=== PATIENT | female | born 1955 | race Caucasian/White ===

== ENCOUNTER 2020-01-24 22:22 | Observation (INO) ==
[2020-01-25 01:08] LABS: Adenovirus Not Detected (Not Detect); Bordetella Pertussis Not Detected (Not Detect); Chlamydophila pneumoniae Not Detected (Not Detect); Coronavirus 229E Not Detected (Not Detect); Coronavirus HKU1 Not Detected (Not Detect); Coronavirus NL63 Not Detected (Not Detect); Coronavirus OC43 Not Detected (Not Detect); Human Metapneumovirus Not Detected (Not Detect); Human Rhinovirus/Enterovirus Not Detected (Not Detect); Influenza A Subtype 2009 H1 Not Detected (Not Detect); Influenza B Not Detected (Not Detect); Mycoplasma pneumoniae Not Detected (Not Detect); Parainfluenza Virus 1 Not Detected (Not Detect); Parainfluenza Virus 2 Not Detected (Not Detect); Parainfluenza Virus 3 Not Detected (Not Detect); Parainfluenza Virus 4 Not Detected (Not Detect); Respiratory Syncytial Virus Not Detected (Not Detect); SARS-CoV-2 Not Detected (Not Detect)
[2020-01-25] MEDS ORDERED: Naloxone 0.4 MG/ML INJ IVP PRN (01:52)
[2020-01-25] MEDS: Ketorolac 15 MG/ML VIAL IVP PRN ×2 (06:05→12:34)
[2020-01-25 07:06] LABS: Basophils % 0.3 %; Hematocrit 42.6 % (35.3-44.9); Hemoglobin 13.9 g/dL (11.5-15.4); Immature Granulocytes % 0.2 % (0-4); Lymphocytes % 15.8 %; Mean Corpuscular HGB Conc 32.6 g/dL (31.6-35.5); Mean Corpuscular Hemoglobin 30.1 pg (28.0-33.3); Mean Corpuscular Volume 92.2 fL (83.0-100.0); Mean Platelet Volume 11.9 fL (9.4-12.4); Monocytes # 0.1 K/mcL (0.0-1.3); Monocytes % 1.5 %; Neutrophils # 5.3 K/mcL (1.6-8.9); Platelet Count 248 K/mcL (140-400); Red Blood Count 4.62 M/mcL (3.82-4.97); Red Cell Distribution Width 12.8 % (11.5-14.5); Segmented Neutrophils % 82.2 %; White Blood Count 6.5 K/mcL (4.3-11.1)
[2020-01-25 07:22] LABS: Prothrombin Time 11.5 Seconds (9.4-12.1)
[2020-01-25 07:25] LABS: Alanine Aminotransferase 7 Units/L (7-52); Albumin/Globulin Ratio 1.2 (1.1-2.2); Alkaline Phosphatase 66 Units/L (34-104); Aspartate Amino Transferase 10 Units/L (13-39); BUN/Creatinine Ratio 15 (6-26); Bilirubin,Total 0.3 mg/dL (0.3-1.0); Blood Urea Nitrogen 11 mg/dL (8-23); Calcium 9.1 mg/dL (8.6-10.3); Carbon Dioxide 23 mEq/L (23-29); Chloride 106 mEq/L (98-107); Globulin 3.3 g/dL (2.4-3.5); Glucose 143 mg/dL (70-105); Magnesium 2.2 mg/dL (1.6-2.6); Osmolality,Calculated 288 (280-300); Phosphorous 3.8 mg/dL (2.7-4.5); Potassium 4.2 mEq/L (3.5-5.1); Sodium 138 mEq/L (136-145); Total Protein 7.3 g/dL (6.4-8.9); eGFR For African Americans > 60 (> 60); eGFR For Non-African Americans > 60 (> 60)
[2020-01-25] MEDS ORDERED: NON-FORMULARY MEDICATION 1 EACH EACH (Duloxetine Hcl [Cymbalta] 60 MG) PO SCH (09:30)
[2020-01-25] MEDS: Nicotine 21 MG PATCH.TD24 TD SCH (09:57)
[2020-01-25] MEDS: cefTRIAXone 1,000 MG in Water for inj. (sterile) 10 ML IVP SCH (09:58)
[2020-01-25] MEDS: Azithromycin 500 MG in D5% in Water 250 ML IVPB SCH (09:58)
[2020-01-25] MEDS: lisinopriL 20 MG TABLET PO SCH (11:14)
[2020-01-25] MEDS: Aspirin Enteric Coated 81 MG Tablet PO SCH (11:14)
[2020-01-25] MEDS: clonazePAM 0.5 MG TABLET PO SCH ×3 (11:17→20:11)
[2020-01-25] MEDS: Gabapentin 400 MG CAPSULE PO SCH ×3 (11:17→20:10)
[2020-01-25] MEDS ORDERED: *HR* LORazepam 0.5 MG TABLET PO PRN (13:10)
[2020-01-25] MEDS: Fluticasone Propionate Nasal 50 MCG/SPRAY BOTTLE NS SCH (13:31)
[2020-01-25] MEDS: predniSONE 20 MG TABLET PO SCH (15:09)
[2020-01-25] MEDS: traZODone 50 MG TABLET PO SCH (20:10)
[2020-01-25] MEDS: Budesonide/Formoterol 160/4.5 1 PUFF INH IH SCH (20:24)
[2020-01-25] MEDS ORDERED: NON-FORMULARY MEDICATION 1 EACH EACH (Trazodone Hcl 150 MG) PO SCH (21:00)
[2020-01-26] MEDS: Budesonide/Formoterol 160/4.5 1 PUFF INH IH SCH ×2 (07:38→19:59)
[2020-01-26] MEDS ORDERED: Ondansetron 4 MG/2 ML VIAL ONE (10:07)
[2020-01-26] MEDS ORDERED: Dexamethasone 4 MG/ML VIAL ONE (10:07)
[2020-01-26] MEDS ORDERED: Lidocaine -MPF 2% 2 ML VIAL ONE ×2 (10:07→11:28)
[2020-01-26] MEDS ORDERED: Lidocaine -MPF 4% 5 ML AMPUL ONE (11:24)
[2020-01-26] MEDS ORDERED: *HR* FentaNYL (PF) 100 MCG/2 ML VIAL ONE (11:25)
[2020-01-26] MEDS ORDERED: *HR* PHENYLEPHRINE 1,000 MCG/10 ML SYRINGE IVP ONE (11:49)
[2020-01-26] MEDS: Azithromycin 500 MG in D5% in Water 250 ML IVPB SCH (13:09)
[2020-01-26] MEDS: predniSONE 20 MG TABLET PO SCH (13:10)
[2020-01-26] MEDS: lisinopriL 20 MG TABLET PO SCH (13:10)
[2020-01-26] MEDS: cefTRIAXone 1,000 MG in Water for inj. (sterile) 10 ML IVP SCH (13:10)
[2020-01-26] MEDS: clonazePAM 0.5 MG TABLET PO SCH ×3 (13:11→20:36)
[2020-01-26] MEDS: Gabapentin 400 MG CAPSULE PO SCH ×3 (13:11→20:35)
[2020-01-26] MEDS: Nicotine 21 MG PATCH.TD24 TD SCH (13:11)
[2020-01-26] MEDS: Fluticasone Propionate Nasal 50 MCG/SPRAY BOTTLE NS SCH (13:12)
[2020-01-26] MEDS: Aspirin Enteric Coated 81 MG Tablet PO SCH (19:34)
[2020-01-26] MEDS: traZODone 50 MG TABLET PO SCH (20:35)
[2020-01-26] MEDS: Ketorolac 15 MG/ML VIAL IVP PRN (20:36)
[2020-01-26 21:20] LABS: Source of Body Fluid LUL BAL
[2020-01-26 22:52] LABS: Appearance of Body Fluid Cloudy (Clear); Volume of Body Fluid 15 mL
[2020-01-27 06:57] VITALS: BP 128/62
[2020-01-27] MEDS: Azithromycin 500 MG in D5% in Water 250 ML IVPB SCH (07:36)
[2020-01-27] MEDS: cefTRIAXone 1,000 MG in Water for inj. (sterile) 10 ML IVP SCH (07:36)
[2020-01-27] MEDS: clonazePAM 0.5 MG TABLET PO SCH (07:37)
[2020-01-27] MEDS: lisinopriL 20 MG TABLET PO SCH (07:37)
[2020-01-27] MEDS: Gabapentin 400 MG CAPSULE PO SCH (07:37)
[2020-01-27] MEDS: predniSONE 20 MG TABLET PO SCH (07:38)
[2020-01-27] MEDS: Nicotine 21 MG PATCH.TD24 TD SCH (07:38)
[2020-01-27] MEDS: Fluticasone Propionate Nasal 50 MCG/SPRAY BOTTLE NS SCH (07:39)
[2020-01-27] MEDS: Budesonide/Formoterol 160/4.5 1 PUFF INH IH SCH (07:54)
== END 2020-01-27 11:58 | disposition home or self-care (01) ==
LOC: 3BNU → SUATTDRO 23:44
PROVIDERS: ADMIT Internal Medicine; ATTEND Internal Medicine

== ENCOUNTER 2020-05-04 18:22 | Inpatient (IN) ==
[2020-05-04] MEDS ORDERED: Ondansetron 4 MG/2 ML VIAL IVP ONE (18:52)
[2020-05-04] MEDS ORDERED: 0.9 % Sodium Chloride 1,000 ML IVC ONE (18:52)
[2020-05-04 19:22] LABS: Hematocrit 31.4 % (35.3-44.9); Hemoglobin 10.3 g/dL (11.5-15.4); Mean Corpuscular HGB Conc 32.8 g/dL (31.6-35.5); Mean Corpuscular Hemoglobin 27.7 pg (28.0-33.3); Mean Corpuscular Volume 84.4 fL (83.0-100.0); Mean Platelet Volume 10.3 fL (9.4-12.4); Platelet Count 298 K/mcL (140-400); Red Blood Count 3.72 M/mcL (3.82-4.97); Red Cell Distribution Width 13.4 % (11.5-14.5); White Blood Count 16.9 K/mcL (4.3-11.1)
[2020-05-04 19:26] LABS: INR 1.2; Prothrombin Time 13.8 Seconds (9.4-12.1)
[2020-05-04 19:43] LABS: Alanine Aminotransferase 26 Units/L (7-52); Albumin 3.3 g/dL (3.5-5.7); Albumin/Globulin Ratio 0.9 (1.1-2.2); Alkaline Phosphatase 92 Units/L (34-104); Aspartate Amino Transferase 34 Units/L (13-39); BUN/Creatinine Ratio 25 (6-26); Bilirubin,Total 0.5 mg/dL (0.3-1.0); Blood Urea Nitrogen 14 mg/dL (8-23); Calcium 8.8 mg/dL (8.6-10.3); Carbon Dioxide 24 mEq/L (23-29); Chloride 91 mEq/L (98-107); Globulin 3.6 g/dL (2.4-3.5); Glucose 111 mg/dL (70-105); Lipase 17 Units/L (11-82); Osmolality,Calculated 271 (280-300); Sodium 130 mEq/L (136-145); Total Protein 6.9 g/dL (6.4-8.9); Troponin I < 0.03 ng/mL (< 0.04); eGFR For African Americans > 60 (> 60); eGFR For Non-African Americans > 60 (> 60)
[2020-05-04] MEDS ORDERED: 0.9 % Sodium Chloride 1,000 ML IV ONE ×2 (19:51→20:22)
[2020-05-04 19:52] LABS: Lymphocytes # 0.7 K/mcL (0.6-4.6); Neutrophils # 15.9 K/mcL (1.6-8.9)
[2020-05-04] MEDS ORDERED: Piperacillin/Tazobactam 3.375 GM in 0.9 % Sodium Chloride Mini Bag 100 ML IVPB ONE (19:52)
[2020-05-04 19:53] LABS: Platelet Estimate Normal (Normal)
[2020-05-04] MEDS ORDERED: Piperacillin/Tazobactam 3.375 GM VIAL ONE (19:59)
[2020-05-04] MEDS ORDERED: Vancomycin 1,250 MG/262.5 ML IV.SOLN IVPB ONE (20:00)
[2020-05-04] MEDS ORDERED: Naloxone 0.4 MG/ML INJ IVP PRN (20:56)
[2020-05-04] MEDS ORDERED: *HR* HYDROcodone/Acet 5/325 mg TABLET PO PRN ×2 (20:56→21:47)
[2020-05-04] MEDS ORDERED: Acetaminophen 325 MG TABLET PO PRN (20:56)
[2020-05-04] MEDS ORDERED: Ondansetron 4 MG/2 ML VIAL IVP PRN (20:56)
[2020-05-04] MEDS ORDERED: Vancomycin (wt based) 1,000 MG VIAL IVPB SCH (21:00)
[2020-05-04] MEDS: Budesonide/Formoterol 160/4.5 1 PUFF INH IH SCH (23:03)
[2020-05-04 23:38] LABS: Bacteria,Urine Few per hpf (None-Few); Bilirubin,Urine Negative (Negative); Blood,Urine Large (Negative); Clarity,Urine Clear (Clear); Color,Urine Light-Yellow (Yellow); Glucose,Urine (UA) Normal (Normal); Ketones,Urine 40 mg/dL (Negative); Leukocyte Esterase,Urine Negative (Negative); Mucus,Urine Few per lpf (None-Few); Nitrite,Urine Negative (Negative); Protein,Urine Trace mg/dL (Neg-Trace); RBC,Urine 30-50 per hpf (0-3); Specific Gravity,Urine 1.024 (1.010-1.025); Squamous Epithelial Cell,Urine Few per hpf (None-Few); Urobilinogen,Urine Normal (Normal)
[2020-05-05] MEDS: 0.9 % Sodium Chloride 1,000 ML IVC SCH ×3 (00:27→22:37)
[2020-05-05] MEDS: Piperacillin/Tazobactam 3.375 GM in 0.9 % Sodium Chloride Mini Bag 100 ML IVPB SCH ×3 (04:51→20:29)
[2020-05-05 08:31] LABS: Basophils # 0.1 K/mcL (0.0-0.2); Basophils % 0.5 %; Eosinophils # 0.1 K/mcL (0.0-0.6); Eosinophils % 0.5 %; Hematocrit 29.7 % (35.3-44.9); Hemoglobin 9.6 g/dL (11.5-15.4); Immature Granulocytes % 0.8 % (0-4); Lymphocytes # 0.4 K/mcL (0.6-4.6); Lymphocytes % 3.8 %; Mean Corpuscular HGB Conc 32.3 g/dL (31.6-35.5); Mean Corpuscular Volume 86.6 fL (83.0-100.0); Mean Platelet Volume 10.3 fL (9.4-12.4); Monocytes # 0.2 K/mcL (0.0-1.3); Monocytes % 1.7 %; Platelet Count 239 K/mcL (140-400); Red Blood Count 3.43 M/mcL (3.82-4.97); Red Cell Distribution Width 13.4 % (11.5-14.5); Segmented Neutrophils % 92.7 %; White Blood Count 11.7 K/mcL (4.3-11.1)
[2020-05-05 08:39] LABS: Neutrophils # 10.9 K/mcL (1.6-8.9)
[2020-05-05 08:50] LABS: Alanine Aminotransferase 19 Units/L (7-52); Albumin 2.8 g/dL (3.5-5.7); Albumin/Globulin Ratio 0.9 (1.1-2.2); Alkaline Phosphatase 84 Units/L (34-104); Aspartate Amino Transferase 23 Units/L (13-39); BUN/Creatinine Ratio 16 (6-26); Bilirubin,Direct 0.1 mg/dL (0.0-0.2); Bilirubin,Indirect 0.4 mg/dL (0.0-1.0); Bilirubin,Total 0.5 mg/dL (0.3-1.0); Blood Urea Nitrogen 7 mg/dL (8-23); Calcium 7.9 mg/dL (8.6-10.3); Carbon Dioxide 23 mEq/L (23-29); Chloride 101 mEq/L (98-107); Globulin 3.1 g/dL (2.4-3.5); Glucose 100 mg/dL (70-105); Magnesium 1.5 mg/dL (1.6-2.6); Osmolality,Calculated 276 (280-300); Phosphorous 2.5 mg/dL (2.7-4.5); Potassium 3.2 mEq/L (3.5-5.1); Sodium 134 mEq/L (136-145); Total Protein 5.9 g/dL (6.4-8.9); eGFR For African Americans > 60 (> 60); eGFR For Non-African Americans > 60 (> 60)
[2020-05-05] MEDS ORDERED: Vancomycin 1,250 MG/262.5 ML IV.SOLN IVPB SCH (09:00)
[2020-05-05] MEDS ORDERED: lisinopriL 20 MG TABLET PO SCH (09:00)
[2020-05-05] MEDS: Aspirin Enteric Coated 81 MG Tablet PO SCH (10:12)
[2020-05-05] MEDS: Budesonide/Formoterol 160/4.5 1 PUFF INH IH SCH ×2 (11:13→21:01)
[2020-05-05 11:28] LABS: Platelet Estimate Normal (Normal)
[2020-05-05 11:29] LABS: Anisocytosis 1+ (Not Present)
[2020-05-05] MEDS ORDERED: Potassium Phosphate 44 MEQ in 0.9 % Sodium Chloride 250 ML IVPB ONE (12:00)
[2020-05-05] MEDS ORDERED: Potassium Chloride 40 MEQ, Lidocaine 1% 2 ML in 0.9 % Sodium Chloride 500 ML IVPB ONE (12:00)
[2020-05-05] MEDS: Ondansetron 4 MG/2 ML VIAL IVP SCH ×2 (13:21→17:25)
[2020-05-05] MEDS ORDERED: *HR* HYDROcodone/Acet 5/325 mg TABLET PO PRN (15:39)
[2020-05-05] MEDS ORDERED: Ipratropium/Albuterol Neb 3 ML IH PRN (15:49)
[2020-05-05] MEDS ORDERED: traZODone 50 MG TABLET PO SCH (21:00)
[2020-05-06] MEDS: Ondansetron 4 MG/2 ML VIAL IVP SCH ×3 (00:23→17:01)
[2020-05-06 01:54] LABS: Basophils # 0.1 K/mcL (0.0-0.2); Basophils % 0.8 %; Eosinophils # 0.1 K/mcL (0.0-0.6); Eosinophils % 1.3 %; Hematocrit 27.8 % (35.3-44.9); Hemoglobin 9.2 g/dL (11.5-15.4); Immature Granulocytes % 1.4 % (0-4); Lymphocytes # 0.5 K/mcL (0.6-4.6); Lymphocytes % 6.7 %; Mean Corpuscular HGB Conc 33.1 g/dL (31.6-35.5); Mean Corpuscular Hemoglobin 28.6 pg (28.0-33.3); Mean Corpuscular Volume 86.3 fL (83.0-100.0); Mean Platelet Volume 10.6 fL (9.4-12.4); Monocytes # 0.3 K/mcL (0.0-1.3); Monocytes % 3.3 %; Neutrophils # 6.8 K/mcL (1.6-8.9); Platelet Count 190 K/mcL (140-400); Red Blood Count 3.22 M/mcL (3.82-4.97); Red Cell Distribution Width 13.2 % (11.5-14.5); Segmented Neutrophils % 86.5 %; White Blood Count 7.9 K/mcL (4.3-11.1)
[2020-05-06 02:10] LABS: Magnesium 1.7 mg/dL (1.6-2.6); Phosphorous 2.6 mg/dL (2.7-4.5)
[2020-05-06 02:13] LABS: Alanine Aminotransferase 16 Units/L (7-52); Albumin 2.7 g/dL (3.5-5.7); Albumin/Globulin Ratio 0.9 (1.1-2.2); Alkaline Phosphatase 76 Units/L (34-104); Aspartate Amino Transferase 19 Units/L (13-39); BUN/Creatinine Ratio 11 (6-26); Bilirubin,Total 0.5 mg/dL (0.3-1.0); Blood Urea Nitrogen 4 mg/dL (8-23); Calcium 7.9 mg/dL (8.6-10.3); Carbon Dioxide 20 mEq/L (23-29); Chloride 103 mEq/L (98-107); Globulin 2.9 g/dL (2.4-3.5); Glucose 98 mg/dL (70-105); Osmolality,Calculated 277 (280-300); Potassium 3.2 mEq/L (3.5-5.1); Sodium 135 mEq/L (136-145); Total Protein 5.6 g/dL (6.4-8.9); eGFR For African Americans > 60 (> 60); eGFR For Non-African Americans > 60 (> 60)
[2020-05-06 02:15] LABS: Toxic Granulation Present (Not Present)
[2020-05-06 02:16] LABS: Platelet Estimate Normal (Normal)
[2020-05-06] MEDS: Piperacillin/Tazobactam 3.375 GM in 0.9 % Sodium Chloride Mini Bag 100 ML IVPB SCH ×3 (04:31→20:11)
[2020-05-06] MEDS: Budesonide/Formoterol 160/4.5 1 PUFF INH IH SCH ×2 (08:04→19:55)
[2020-05-06] MEDS: Mirtazapine 15 MG TABLET PO SCH (09:53)
[2020-05-06] MEDS: Aspirin Enteric Coated 81 MG Tablet PO SCH (09:53)
[2020-05-06] MEDS: 0.9 % Sodium Chloride 1,000 ML IVC SCH (09:56)
[2020-05-06] MEDS: *HR* LORazepam 0.5 MG TABLET PO SCH ×3 (11:27→20:11)
[2020-05-06] MEDS: Vancomycin 1,250 MG/262.5 ML IV.SOLN IVPB SCH (12:45)
[2020-05-06] MEDS: lisinopriL 5 MG TABLET PO SCH (12:45)
[2020-05-07] MEDS: Ondansetron 4 MG/2 ML VIAL IVP SCH ×2 (00:11→05:59)
[2020-05-07] MEDS: Vancomycin 1,250 MG/262.5 ML IV.SOLN IVPB SCH ×2 (00:14→12:06)
[2020-05-07] MEDS: Piperacillin/Tazobactam 3.375 GM in 0.9 % Sodium Chloride Mini Bag 100 ML IVPB SCH ×2 (04:08→12:05)
[2020-05-07 04:34] LABS: Basophils # 0.1 K/mcL (0.0-0.2); Eosinophils # 0.1 K/mcL (0.0-0.6); Eosinophils % 1.2 %; Hematocrit 27.7 % (35.3-44.9); Hemoglobin 9.2 g/dL (11.5-15.4); Immature Granulocytes % 0.8 % (0-4); Lymphocytes # 0.6 K/mcL (0.6-4.6); Lymphocytes % 10.8 %; Mean Corpuscular HGB Conc 33.2 g/dL (31.6-35.5); Mean Corpuscular Hemoglobin 28.5 pg (28.0-33.3); Mean Corpuscular Volume 85.8 fL (83.0-100.0); Mean Platelet Volume 10.5 fL (9.4-12.4); Monocytes # 0.3 K/mcL (0.0-1.3); Monocytes % 5.7 %; Neutrophils # 4.1 K/mcL (1.6-8.9); Platelet Count 160 K/mcL (140-400); Red Blood Count 3.23 M/mcL (3.82-4.97); Red Cell Distribution Width 13.2 % (11.5-14.5); Segmented Neutrophils % 80.5 %; White Blood Count 5.1 K/mcL (4.3-11.1)
[2020-05-07 04:52] LABS: Platelet Estimate Normal (Normal)
[2020-05-07 04:54] LABS: Alanine Aminotransferase 15 Units/L (7-52); Albumin 2.8 g/dL (3.5-5.7); Albumin/Globulin Ratio 0.9 (1.1-2.2); Alkaline Phosphatase 71 Units/L (34-104); Aspartate Amino Transferase 17 Units/L (13-39); BUN/Creatinine Ratio 7 (6-26); Bilirubin,Total 0.5 mg/dL (0.3-1.0); Blood Urea Nitrogen 3 mg/dL (8-23); Calcium 8.1 mg/dL (8.6-10.3); Carbon Dioxide 26 mEq/L (23-29); Chloride 102 mEq/L (98-107); Glucose 109 mg/dL (70-105); Magnesium 1.6 mg/dL (1.6-2.6); Osmolality,Calculated 281 (280-300); Phosphorous 2.8 mg/dL (2.7-4.5); Potassium 2.9 mEq/L (3.5-5.1); Sodium 137 mEq/L (136-145); Total Protein 5.8 g/dL (6.4-8.9); eGFR For African Americans > 60 (> 60); eGFR For Non-African Americans > 60 (> 60)
[2020-05-07] MEDS ORDERED: Potassium Chloride Elixir 20 MEQ/15 ML UDC PO ONE (07:44)
[2020-05-07] MEDS ORDERED: Ondansetron 4 MG/2 ML VIAL IVP PRN ×2 (07:44→07:45)
[2020-05-07] MEDS: lisinopriL 5 MG TABLET PO SCH (08:19)
[2020-05-07] MEDS: Aspirin Enteric Coated 81 MG Tablet PO SCH (08:19)
[2020-05-07] MEDS: Budesonide/Formoterol 160/4.5 1 PUFF INH IH SCH (08:19)
[2020-05-07] MEDS: Mirtazapine 15 MG TABLET PO SCH (08:19)
[2020-05-07] MEDS: *HR* LORazepam 0.5 MG TABLET PO SCH ×2 (08:19→15:24)
[2020-05-07] MEDS ORDERED: Potassium Chloride 40 MEQ, Lidocaine 1% 2 ML in 0.9 % Sodium Chloride 500 ML IVPB ONE (09:00)
[2020-05-07 10:53] VITALS: BP 123/52
== END 2020-05-07 17:54 | disposition home or self-care (01) | DRG 871 ==
LOC: EMEROOARM 18:22 → 3ANU 18:22 → SUATTDRO 05-05 17:20
PROVIDERS: ADMIT Student in an Organized Health Care Education/Training Program; ATTEND Internal Medicine